=== PATIENT | male | born 1935 | race Caucasian/White ===

== ENCOUNTER 2019-10-29 19:01 | Observation (INO) | payer MEDICARE ==
[~2019-10-29] VITALS: Ht 185.4 cm; Wt 80.3 kg
[2019-10-29] MEDS ORDERED: BAYER CHEWABLE81 MG PO (19:04)
[2019-10-29 19:32] LABS: BASOPHILS 0.5 % (0-2); EOSINOPHILS 0.7 % (0-7); HEMATOCRIT 45.3 % (42.0-54.0); HEMOGLOBIN 15.6 g/dL (13.5-17.5); IMMATURE GRANULOCYTES 0.2 % (0-5); LYMPHOCYTES 28.3 % (15-50); MCH 32.9 pg (26.0-34.0); MCHC 34.4 g/dL (31.0-37.0); MCV 95.6 fL (80.0-100.0); MEAN PLATELET VOLUME 9.2 fL (7.4-10.4); MONOCYTES 7.7 % (2-11); NEUTROPHILS 62.6 % (40-80); PLATELET COUNT 153 10x3/uL (130-400); RBC 4.74 10x6/uL (4.20-6.10); RDW 12.8 % (11.5-14.5); WBC 4.4 10x3/uL (4.8-10.8)
[2019-10-29 19:42] LABS: APTT 25.4 SECONDS (22.8-39.4); INR 0.89 (0.85-1.17)
[2019-10-29 19:49] LABS: CALC OSMOLALITY 262 mosm/kg (275-300); CALCIUM 8.4 mg/dL (8.5-10.1); CARBON DIOXIDE 25.8 mmol/L (21.0-32.0); CHLORIDE - SERUM 95 mmol/L (98-107); CREATININE - SERUM 1.2 mg/dL (0.6-1.3); GLUCOSE 93 mg/dL (74-106); POTASSIUM - SERUM 4.1 mmol/L (3.5-5.1); SODIUM 131 mmol/L (136-145); UREA NITROGEN 12 mg/dL (7-18); eGFR NON AFRICAN AMERICAN 61 mL/min (90-120)
[2019-10-29 19:50] VITALS: BP 182/91
[2019-10-29 20:09] LABS: ALBUMIN 3.4 g/dL (3.4-5.0); ALKALINE PHOSPHATASE 47 U/L (30-120); ALT (SGPT) 17 U/L (10-68); BILIRUBIN - TOTAL 0.48 mg/dL (0.2-1.3); CKMB 3.8 U/L (0.0-3.6); CREATINE KINASE 85 UL (21-232); MAGNESIUM - SERUM 1.9 mg/dL (1.8-2.4); PROTEIN - SERUM 6.8 g/dL (6.4-8.2); THYROID STIMULATING HORMONE 4.51 uIU/mL (0.36-3.74)
[2019-10-29 20:10] LABS: TROPONIN-I < 0.017 ng/mL (0.000-0.060)
[2019-10-29 20:13] LABS: BILIRUBIN NEGATIVE (NEGATIVE); GLUCOSE NEGATIVE (NEGATIVE); KETONE NEGATIVE (NEGATIVE); NITRITE NEGATIVE (NEGATIVE); UROBILINOGEN NORMAL (NORMAL)
[2019-10-29 23:02] VITALS: BP 179/90; BMI 23.8
--- NOTE | 2019-10-30 00:09 | NUR ---
dR. MICHI DOHERTY AWATTING CALL BACK
--- NOTE | 2019-10-30 00:25 | NUR ---
DR BORDEN RETRUNED WITH NEW ORDERS MRI OF BRAIN WITH AND WITHOUT CONTRAST WITH OUT IF CREATININE LEVELS TO HIGH CAROTID DOPPLER STUDDY. ORDERS PLACED
[2019-10-30 04:35] VITALS: BP 178/89
[2019-10-30 06:03] LABS: BASOPHILS 0.2 % (0-2); EOSINOPHILS 0.9 % (0-7); HEMOGLOBIN 14.8 g/dL (13.5-17.5); IMMATURE GRANULOCYTES 0.2 % (0-5); LYMPHOCYTES 23.9 % (15-50); MCHC 33.6 g/dL (31.0-37.0); MEAN PLATELET VOLUME 9.2 fL (7.4-10.4); NEUTROPHILS 64.8 % (40-80); PLATELET COUNT 163 10x3/uL (130-400); RBC 4.63 10x6/uL (4.20-6.10); RDW 12.9 % (11.5-14.5); WBC 4.4 10x3/uL (4.8-10.8)
[2019-10-30 06:39] LABS: ALBUMIN 3.1 g/dL (3.4-5.0); ALKALINE PHOSPHATASE 50 U/L (30-120); ALT (SGPT) 15 U/L (10-68); BILIRUBIN - TOTAL 0.61 mg/dL (0.2-1.3); CALC OSMOLALITY 273 mosm/kg (275-300); CALCIUM 8.4 mg/dL (8.5-10.1); CARBON DIOXIDE 31.4 mmol/L (21.0-32.0); CHLORIDE - SERUM 103 mmol/L (98-107); CKMB 5.7 U/L (0.0-3.6); CREATINE KINASE 188 UL (21-232); CREATININE - SERUM 0.9 mg/dL (0.6-1.3); GLUCOSE 78 mg/dL (74-106); POTASSIUM - SERUM 4.3 mmol/L (3.5-5.1); PROTEIN - SERUM 6.3 g/dL (6.4-8.2); SODIUM 138 mmol/L (136-145); TROPONIN-I 0.024 ng/mL (0.000-0.060); UREA NITROGEN 10 mg/dL (7-18); eGFR NON AFRICAN AMERICAN 85 mL/min (90-120)
--- NOTE | 2019-10-30 07:15 | NUR ---
REC'D IN BED AWAKE AND ALERT. RESP EVEN AND UNLABORED WITH NO DISTRESS NOTED. CAN MAKE NEEDS AND WANTS KNOWN. DENIES ANY PAIN OR DISCOMFORT AT THIS TIME. ASSESSMENT COMPLETED. C/L IN REACH AT BEDSIDE.
[2019-10-30 08:30] VITALS: BP 175/60
--- NOTE | 2019-10-30 11:14 | EC ---
PATIENT:ROBERTA BEAN DATE OF SERVICE: 10/29/19 SEX: M MEDICAL RECORD: [id number] DATE OF : 33 LOCATION:[facility] AGE OF PATIENT: 83 ADMISSION DATE: 10/29/19 REFERRING PHYSICIAN: INTERPRETING PHYSICIAN: FAHAD DONAHUE MD ECHOCARDIOGRAM REPORT ECHO CHARGES 4 ECHO COMPLETE Date: 10/30/19 CLINICAL DIAGNOSIS: TIA ECHOCARDIOGRAPHIC MEASUREMENTS (adult normal given) AC root (d.<3.7cm) 4.0 cm LV Septum d (<1.2 cm> 1.6 cm Valve Excursion 1.7 cm LV Septum (systole) 2.0 cm Left Atria (s.<4.0cm> 4.0 cm LVPW d(<1.2cm) 1.4 cm RV (d.<2.3cm) 2.6 cm LVPW (sytole) 2.5 cm LV diastole(<5.6CM) 5.0 cm MV E-F(>70mm/sec) cm LV systole 2.9 cm LVOT Diameter 2.1 cm MV exc.(>10mm) cm Est.ejection fraction (50-75%) % DOPPLER: LVIT cm/sec A 121 cm/sec E 71.0 cm/sec LA cm/sec RVSP mmHg LVOT 120 cm/sec AOP1/2T m/s Asc. Ao 159 cm/sec RVOT 69.0 cm/sec RA cm/sec PA 75.0 cm/sec AV Gradient Peak 10.1 mmHg AV Mean 4.3 mmHg AV Area 2.7 cm MV Gradient Peak 6.1 mmHg MV Mean 2.0 mmHg MV Area cm COMMENTS: Costume Specialist: 1 BRITTANY PERALTADSOE Application Operations Engineer: 3 Dr. Harrison TAPE# PACS Pericardial Effusion N DATE OF SERVICE: Adequate 2D, color flow imaging, spectral Doppler, and M-Mode LVH is present. LV internal dimensions are normal. Wall motion is normal. EF is greater than or equal to 55%. Aortic valve is sclerotic. No evidence of stenosis by Doppler interrogation. Left atrium is normal at 4.0 cm. Mitral valve shows no prolapse. Trivial MR. Right-sided chambers are grossly normal. [id number] TR. ECHOCARDIOGRAM REPORT [id number] ROBERTA BEAN TRANSINT:[id number] Voice Confirmation ID: [id number] DOCUMENT ID: [id number] FAHAD DONAHUE MD at 1114 CC: [id number] DICTATION DATE: 10/30/19 1012 LAUNDRY PRESSER: 10/30/19 1058 ADM IN [facility] [address] [id number]
[2019-10-30 12:16] VITALS: BP 153/75
--- NOTE | 2019-10-30 12:45 | NUR ---
I have reviewed this patient and I concur with the Shift Assessment completed by the Licensed Practical Nurse today this shift.
[2019-10-30 14:01] VITALS: Ht 185.4 cm; Wt 80.3 kg
[2019-10-30 14:54] VITALS: BP 160/71
[2019-10-30] MEDS ORDERED: Sinemet 25/100 MG PO (15:25)
[2019-10-30] MEDS ORDERED: LISINOPRIL10 MG PO (15:25)
--- NOTE | 2019-10-30 17:53 | NUR ---
DC HOME AT THIS TIME WITH DAUGHTER AT BEDSIDE AND BOTH VOICE UNDERSTANDING OF DC ORDERS. PT TOOK ALL PERSONAL BELONGS WTIH HIM. STABLE CONDITION UPON DC.
== END 2019-10-30 18:01 | disposition home or self-care (01) ==
LOC: D.ER 19:01 → D.MS 21:33 → OBSVTIME 21:47 → D.MS 10-30 18:01
PROVIDERS: Family Medicine; ADMIT Family Medicine; ATTEND Family Medicine
DX: G31.2 Degeneration of nervous system due to alcohol (principal); R26.9 Unspecified abnormalities of gait and mobility; R53.1 Weakness; I10 Essential (primary) hypertension; F10.20 Alcohol dependence, uncomplicated; W19.XXXA Unspecified fall, initial encounter; R27.0 Ataxia, unspecified

== ENCOUNTER 2020-11-13 01:13 | Inpatient (IN) | payer MEDICARE ==
[~2020-11-13] VITALS: Ht 185.4 cm; Wt 88.5 kg
[~2020-11-13 01:13] MED LIST: BAYER CHEWABLE81 MG PO; LISINOPRIL10 MG PO; Sinemet 25/100 MG PO
[2020-11-13 01:52] LABS: BASOPHILS 0.6 % (0-2); EOSINOPHILS 0.1 % (0-7); HEMATOCRIT 42.9 % (42.0-54.0); HEMOGLOBIN 14.3 g/dL (13.5-17.5); LYMPHOCYTES 19.4 % (15-50); MCH 30.6 pg (26.0-34.0); MCHC 33.2 g/dL (31.0-37.0); MCV 92.2 fL (80.0-100.0); MEAN PLATELET VOLUME 7.5 fL (7.4-10.4); MONOCYTES 10.4 % (2-11); NEUTROPHILS 69.5 % (40-80); PLATELET COUNT 160 10x3/uL (130-400); RBC 4.66 10x6/uL (4.20-6.10); RDW 13.6 % (11.5-14.5); WBC 8.7 10x3/uL (4.8-10.8)
[2020-11-13 01:53] LABS: CALC OSMOLALITY 271 mosm/kg (275-300); CALCIUM 7.9 mg/dL (8.5-10.1); CARBON DIOXIDE 30.3 mmol/L (21.0-32.0); CHLORIDE - SERUM 100 mmol/L (98-107); POTASSIUM - SERUM 3.8 mmol/L (3.5-5.1); SODIUM 135 mmol/L (136-145); UREA NITROGEN 14 mg/dL (7-18); eGFR NON AFRICAN AMERICAN 75 mL/min (90-120)
[2020-11-13 01:58] LABS: GLUCOSE 118 mg/dL (74-106)
[2020-11-13 02:09] LABS: ALBUMIN 2.8 g/dL (3.4-5.0); ALKALINE PHOSPHATASE 74 U/L (30-120); ALT (SGPT) 13 U/L (10-68); BILIRUBIN - TOTAL 1.05 mg/dL (0.2-1.3); MAGNESIUM - SERUM 1.9 mg/dL (1.8-2.4); PROTEIN - SERUM 6.1 g/dL (6.4-8.2); THYROID STIMULATING HORMONE 4.46 uIU/mL (0.36-3.74); TROPONIN-I 0.016 ng/mL (0.000-0.060)
--- NOTE | 2020-11-13 03:21 | NUR ---
PT ATTEMPTING TO GET OUT OF BED, PT UNDID BED ALARM AND CORDS FROM MONITOR, PT SITTING ON THE END OF THE BED, PT REORIENTED AND MOVED UP IN BED. BED ALARM REATTATCHED AND PT EDUCATEED ON USE OF CALL LIGHT AGAIN.
[2020-11-13 04:00] LABS: UDS - AMPHET NEGATIVE QUAL (NEGATIVE); UDS - BARB NEGATIVE QUAL (NEGATIVE); UDS - BENZO NEGATIVE QUAL (NEGATIVE); UDS - COCAINE NEGATIVE QUAL (NEGATIVE); UDS - OPIATE NEGATIVE QUAL (NEGATIVE); UDS - PCP NEGATIVE QUAL (NEGATIVE); UDS - THC NEGATIVE QUAL (NEGATIVE)
[2020-11-13 04:07] LABS: AMORPHOUS SEDIMENT RARE LPF (<FEW); BACTERIA FEW HPF (<MOD); BILIRUBIN NEGATIVE (NEGATIVE); KETONE 1+ mg/dL (< 1+); NITRITE NEGATIVE (NEGATIVE); PH 5.5 (5.0-8.0); SQUAMOUS EPITHELIAL <1 HPF (0-4); UROBILINOGEN 4 mg/dL (< 2); WHITE CELLS - URINE 2 HPF (0-1)
--- NOTE | 2020-11-13 07:16 | NUR ---
PT CARE ASSUMED AT THIS TIME, PT IS AWAKE, CONFUSED, CLIMBING OFF THE END OF THE BED, ASSISTED BACK TO SAFE POSITION ON STRETCHER AND REDIRECTED, BED ALARM RE-ATTACHED AND VS MONITORING RE-ESTABLISHED, NAD NOTED, COOPERATIVE, CALL LIGHT IN REACH, INSTRUCTED ON USE.
[2020-11-13 07:17] VITALS: BP 113/64
--- NOTE | 2020-11-13 10:30 | NUR ---
PATIENT IS VERY CONFUSED. PICKING AND PULLING AT GOWN, COVERS, AND MONITOR LINES. DAUGHTER AT BEDSIDE, DISTRAUGHT OVER PATIENT'S MENTAL STATE. THIS NURSE DISCUSSED STAYING CALM, NOT BECOMING AGITATED OR ANGRY WITH THE PATIENT HE IS RESTLESS, CONFUSED TO CURRENT CIRCUMSTANCES AND WITHOUT SHORT TERM MEMORY RECALL.
--- NOTE | 2020-11-13 12:30 | NUR ---
ALL MONITOR LINES REMOVED TO DECREASE AGITATION OF PATIENT.
--- NOTE | 2020-11-13 14:20 | NUR ---
REPORT CALLED. DAUGHTER INFORMED OF MED/SURG BED AND TRANSFER.
--- NOTE | 2020-11-13 15:00 | NUR ---
REC'D TO ROOM 2222 AT THIS TIME WITH DAUGHTER AT SIDE. RESP EVEN AND UNLABORED WITH NO DISTRESS NOTED. UNABLE TO ANSWER QUESTION CORRECTLY. DENIES ANY PAIN OR DISCOMFORT AT THIS TIME. WILL CONTINUE TO OBSERVE FOR NEEDS. C/L IN RECH AT BEDSIDE.
[2020-11-13 21:05] VITALS: BP 139/73
[2020-11-13 22:31] VITALS: BP 139/39; BMI 25.7
[2020-11-14 04:15] VITALS: BP 109/64
[2020-11-14 06:35] LABS: CALC OSMOLALITY 268 mosm/kg (275-300); CARBON DIOXIDE 28.2 mmol/L (21.0-32.0); CHLORIDE - SERUM 101 mmol/L (98-107); CREATININE - SERUM 0.9 mg/dL (0.6-1.3); GLUCOSE 80 mg/dL (74-106); POTASSIUM - SERUM 3.7 mmol/L (3.5-5.1); SODIUM 134 mmol/L (136-145); eGFR NON AFRICAN AMERICAN 85 mL/min (90-120)
[2020-11-14 06:36] LABS: UREA NITROGEN 18 mg/dL (7-18)
[2020-11-14 06:46] LABS: BASOPHILS 0.5 % (0-2); EOSINOPHILS 0.1 % (0-7); HEMATOCRIT 38.4 % (42.0-54.0); HEMOGLOBIN 13.1 g/dL (13.5-17.5); LYMPHOCYTES 12.5 % (15-50); MCH 30.9 pg (26.0-34.0); MCV 90.7 fL (80.0-100.0); MEAN PLATELET VOLUME 7.7 fL (7.4-10.4); MONOCYTES 11.1 % (2-11); NEUTROPHILS 75.8 % (40-80); PLATELET COUNT 155 10x3/uL (130-400); RBC 4.23 10x6/uL (4.20-6.10); RDW 13.3 % (11.5-14.5)
[2020-11-14 06:47] LABS: WBC 6.3 10x3/uL (4.8-10.8)
[2020-11-14 07:33] VITALS: Ht 185.4 cm; Wt 88.5 kg
--- NOTE | 2020-11-14 07:53 | NUR ---
RECIEVED BEDSIDE REPORT. BED LOW POSITION, CALL LIGHT IN REACH. SLEEPING. FAMILY AT BEDSIDE. WILL CONTINUE TO MONITOR.
[2020-11-14 09:34] VITALS: BP 137/66
--- NOTE | 2020-11-14 14:08 | NUR ---
REHAB PRESCREEN ORDER RECEIVED. PATIENT IS A MANAGED MEDICARE. I WILL LOOK AT HIS CHART AND IF HE LOOKS TO MEET CRITERIA, I WILL HAVE IT READY TO SUBMIT ON MONDAY. THANK YOU FOR THIS REFERRAL. SHAVON RICO RN CLINICAL LIAISON, INPATIENT REHAB.
[2020-11-14 14:53] VITALS: BP 114/59
[2020-11-14 17:30] VITALS: BP 142/63
[2020-11-14 20:00] VITALS: BP 179/68
--- NOTE | 2020-11-14 23:30 | NUR ---
I have reviewed this patient and I concur with the Shift Assessment completed by the Licensed Practical Nurse today this shift.
[2020-11-15] VITALS: BP 155/67
[2020-11-15 04:00] VITALS: BP 161/39
[2020-11-15 06:11] LABS: BASOPHILS 0.3 % (0-2); EOSINOPHILS 0.1 % (0-7); HEMATOCRIT 39.3 % (42.0-54.0); HEMOGLOBIN 13.3 g/dL (13.5-17.5); LYMPHOCYTES 10.2 % (15-50); MCH 30.9 pg (26.0-34.0); MCHC 33.8 g/dL (31.0-37.0); MCV 91.3 fL (80.0-100.0); MEAN PLATELET VOLUME 7.5 fL (7.4-10.4); MONOCYTES 10.4 % (2-11); PLATELET COUNT 178 10x3/uL (130-400); RDW 13.2 % (11.5-14.5); WBC 7.5 10x3/uL (4.8-10.8)
[2020-11-15 06:48] LABS: CALC OSMOLALITY 270 mosm/kg (275-300); CALCIUM 7.9 mg/dL (8.5-10.1); CARBON DIOXIDE 29.3 mmol/L (21.0-32.0); CHLORIDE - SERUM 100 mmol/L (98-107); CREATININE - SERUM 0.9 mg/dL (0.6-1.3); GLUCOSE 94 mg/dL (74-106); POTASSIUM - SERUM 3.8 mmol/L (3.5-5.1); SODIUM 134 mmol/L (136-145); UREA NITROGEN 22 mg/dL (7-18); eGFR NON AFRICAN AMERICAN 85 mL/min (90-120)
--- NOTE | 2020-11-15 07:33 | NUR ---
IN BED SLEEPING. FRIEND AT BEDSIDE. BED LOW POSITION, CALL LIGHT IN REACH. WILL CONTINUE TO MONITOR.
[2020-11-15 08:27] VITALS: BP 160/92
[2020-11-15 13:02] VITALS: BP 142/90
--- NOTE | 2020-11-15 15:13 | NUR ---
FAMILY IN ROOM. SHAUN ALARM GOING OFF. STANDING AT BEDSIDE TO USE URINAL. SHAUN ALARM ON WHEN PATIENT SITUATED BACK IN TO BED. DENIES FURTHER NEEDS. CALL LIGHT IN REACH. WILL CONTINUE TO MONITOR.
[2020-11-15 17:27] VITALS: BP 125/67
[2020-11-15 20:00] VITALS: BP 130/71
--- NOTE | 2020-11-15 20:30 | NUR ---
WATCHING TV WITH NO COMPLAINTS VOICED. RESP UNLABORED. ORIENTED TO SELF. SL TO LAC INTACT WITHOUT REDNESS OR EDEMA NOTED. ASSIST UP TO BEDSIDE. VOICED 100 CC YELLOW URINE. BACK TO BED WITH MINIMAL ASSIST. BED ALARM ON.
[2020-11-16] VITALS: BP 148/70; BP 172/77
--- NOTE | 2020-11-16 02:08 | NUR ---
I have reviewed this patient and I concur with the Shift Assessment completed by the Licensed Practical Nurse today this shift.
[2020-11-16 04:00] VITALS: BP 172/77
[2020-11-16 05:57] LABS: BASOPHILS 0.3 % (0-2); EOSINOPHILS 0.3 % (0-7); HEMATOCRIT 38.9 % (42.0-54.0); HEMOGLOBIN 13.1 g/dL (13.5-17.5); MCH 30.8 pg (26.0-34.0); MCHC 33.6 g/dL (31.0-37.0); MCV 91.7 fL (80.0-100.0); MEAN PLATELET VOLUME 7.4 fL (7.4-10.4); NEUTROPHILS 79.4 % (40-80); PLATELET COUNT 188 10x3/uL (130-400); RBC 4.24 10x6/uL (4.20-6.10); RDW 13.5 % (11.5-14.5)
[2020-11-16 06:39] LABS: CALC OSMOLALITY 274 mosm/kg (275-300); CALCIUM 7.7 mg/dL (8.5-10.1); CARBON DIOXIDE 30.3 mmol/L (21.0-32.0); CHLORIDE - SERUM 101 mmol/L (98-107); CREATININE - SERUM 0.9 mg/dL (0.6-1.3); GLUCOSE 87 mg/dL (74-106); POTASSIUM - SERUM 3.6 mmol/L (3.5-5.1); SODIUM 136 mmol/L (136-145); UREA NITROGEN 23 mg/dL (7-18); eGFR NON AFRICAN AMERICAN 85 mL/min (90-120)
--- NOTE | 2020-11-16 07:37 | NUR ---
PATIENT ASLEEP IN BED ON RT SIDE, EASILY AWAKENED FOR ASSESSMENT, PATIENT IS ALERT TO SELF, REORIENTED TO HOSPITAL ROOM. NO NEEDS VOICED AT THIS TIME. CONTINUE WITH PLAN OF CARE
[2020-11-16 09:25] VITALS: BP 141/66
[2020-11-16 12:45] VITALS: BP 137/71
--- NOTE | 2020-11-16 12:49 | NUR ---
I have reviewed this patient and I concur with the Shift Assessment completed by the Licensed Practical Nurse today this shift.
[2020-11-16 15:46] VITALS: BP 129/76
--- NOTE | 2020-11-16 19:30 | NUR ---
RECIVED BEDSIDE REPORT. RESTING SUPINE IN BED. NO C/O PAIN OR DISCOMFORT. LEFT FOREARM PIV SALINE LOCKED. AWAKE AND ALERT TO SELF REORIENTED TO TIME/PLACE/SITUATION. EDUCATED TOWEL SEWER LIGHT AND NEEDS. CALL LIGHT IN REACH BED LOCKED IN LOW POSITION.
[2020-11-16 20:00] VITALS: BP 125/77
[2020-11-17] VITALS (7 sets, daily range): BP systolic 97–159; BP diastolic 63–86
[2020-11-17 05:53] LABS: BASOPHILS 0.3 % (0-2); EOSINOPHILS 0.7 % (0-7); HEMATOCRIT 38.2 % (42.0-54.0); HEMOGLOBIN 12.8 g/dL (13.5-17.5); LYMPHOCYTES 13.8 % (15-50); MCH 30.6 pg (26.0-34.0); MCHC 33.5 g/dL (31.0-37.0); MCV 91.4 fL (80.0-100.0); MEAN PLATELET VOLUME 7.5 fL (7.4-10.4); MONOCYTES 11.6 % (2-11); NEUTROPHILS 73.6 % (40-80); PLATELET COUNT 219 10x3/uL (130-400); RBC 4.18 10x6/uL (4.20-6.10); RDW 13.1 % (11.5-14.5); WBC 6.5 10x3/uL (4.8-10.8)
[2020-11-17 05:55] LABS: CALC OSMOLALITY 275 mosm/kg (275-300); CARBON DIOXIDE 30.4 mmol/L (21.0-32.0); CHLORIDE - SERUM 101 mmol/L (98-107); CREATININE - SERUM 0.9 mg/dL (0.6-1.3); GLUCOSE 87 mg/dL (74-106); POTASSIUM - SERUM 3.5 mmol/L (3.5-5.1); SODIUM 137 mmol/L (136-145); UREA NITROGEN 20 mg/dL (7-18); eGFR NON AFRICAN AMERICAN 85 mL/min (90-120)
--- NOTE | 2020-11-17 08:05 | NUR ---
PT. RECEIVED RESTING IN BED. YELLOW GOWN AND FALL ALARM INTACT. PT ALERT AND ORIENTED THIS MORNING. DENIES ANY PAIN OR NEEDS. SL INTACT TO LEFT ARM. NO DISTRESS. CL WITHIN REACH. [id number].
--- NOTE | 2020-11-17 12:12 | NUR ---
Nutrition follow-up: Diet order: Mechanical soft with thin liquids; extra gravy, condiments and add sauce to meats. Pt eating breakfast at time of RD visit. Pt with good appetite and is eating 100% of meal. RDN explained menu and took pts lunch, dinner selections. Labs reviewed WT: 194# Labs reviewed +BM Pt with good po intake at this time RDN will monitor pts progress toward nutrition goals in 3-5 days.
--- NOTE | 2020-11-17 13:06 | NUR ---
I have reviewed this patient and I concur with the Shift Assessment completed by the Licensed Practical Nurse today this shift.
--- NOTE | 2020-11-17 13:16 | NUR ---
RECEIVED CALL FROM CAR KNOCKER JUDY PATIENT WAS SR THIS MORNING AND NOW IS CONTROLLED AFIB 90, WENT TO CHECK ON PATIENT AND HE IS ASLEEP ON LEFT SIDE, NO NEEDS AT THIS TIME. CONTINUE WITH PLAN OF CARE
--- NOTE | 2020-11-17 15:08 | NUR ---
OT NOTE: PT COMPLETED SUPINE TO SIT WITH SBA. PT COMPLETED EOB SITTING WITH SBA. PT COMPLETED HAIR GROOMING WITH SETUP AT EOB. PT COMPLETED KAYLA/DOFF SOCKS WITH SBA AND EXTRA TIME. PT COMPLETED SIT TO STAND WITH SBA-CGA. [phone] THANK YOU,HUNG ZELAYA
[2020-11-17 15:11] LABS: CHOL - HDL RATIO 2.3 ratio (2.3-4.9); LDL-HDL RATIO 1.2 ratio (1.5-3.5)
[2020-11-18 03:53] VITALS: BP 121/61
--- NOTE | 2020-11-18 05:15 | NUR ---
PATIENT REMOVED PIV FROM LEFT AC TIP INTACT NO REDNESS NO SWELLING TOLERATED WELL. BED LOCKED IN LOW POSITION. CALL LIGHT IN REACH BED ALARM ON.
[2020-11-18 07:36] LABS: CALC OSMOLALITY 273 mosm/kg (275-300); CALCIUM 7.9 mg/dL (8.5-10.1); CARBON DIOXIDE 30.9 mmol/L (21.0-32.0); CHLORIDE - SERUM 102 mmol/L (98-107); CREATININE - SERUM 0.8 mg/dL (0.6-1.3); GLUCOSE 95 mg/dL (74-106); POTASSIUM - SERUM 3.5 mmol/L (3.5-5.1); SODIUM 136 mmol/L (136-145); UREA NITROGEN 17 mg/dL (7-18); eGFR NON AFRICAN AMERICAN > 90 mL/min (90-120)
[2020-11-18 07:38] LABS: BASOPHILS 0.6 % (0-2); EOSINOPHILS 0.7 % (0-7); HEMATOCRIT 40.3 % (42.0-54.0); HEMOGLOBIN 13.2 g/dL (13.5-17.5); LYMPHOCYTES 14.6 % (15-50); MCH 30.4 pg (26.0-34.0); MCHC 32.9 g/dL (31.0-37.0); MCV 92.4 fL (80.0-100.0); MONOCYTES 12.8 % (2-11); NEUTROPHILS 71.3 % (40-80); PLATELET COUNT 233 10x3/uL (130-400); RBC 4.36 10x6/uL (4.20-6.10); RDW 13.3 % (11.5-14.5)
[2020-11-18 07:41] VITALS: BP 139/82
--- NOTE | 2020-11-18 09:27 | NUR ---
CALLED [facility] TO CHECK ON AUTH STATUS. ASIA TOLD ME IT WAS STILL IN REVIEW. I WILL CALL BACK AGAIN AFTER I GET OUT OF IDT TODAY. SHAVON RICO RN, CLINICAL LIAISON, INPATIENT REHAB.
[2020-11-18 11:03] VITALS: BP 129/68
[2020-11-18] MEDS ORDERED: XARELTO20 MG PO (14:17)
--- NOTE | 2020-11-18 16:20 | NUR ---
I have reviewed this patient and I concur with the Shift Assessment completed by the Licensed Practical Nurse today this shift.
--- NOTE | 2020-11-18 16:36 | NUR ---
OT NOTE: PT LIEING IN BED COMPLETELY DRESSED. DTR REPORTS THAT PT GOT UP THIS AM, GOT DRESSED, SHAVED, AND WENT TO BATHROOM WITHOUT ASSIST. HOWEVER, PT SILL SLIGHTLY UNSTEADY WITH INITIAL SIT TO STAND AND REQUIRES CUES FOR WALKER MGMT FOR IN ROOM MOBILITY. PT DOING BETTER AND INITIATING ALL ADLS, HOWEVER, MAY BENEFIT FROM REHAB PRIOR TO DC HOME WITHOUT ASSIST. SHAKIRA BATISTA, OTR/L [phone]
[2020-11-18 20:00] VITALS: BP 151/72
[2020-11-19] VITALS: BP 163/83
[2020-11-19 04:00] VITALS: BP 156/82
--- NOTE | 2020-11-19 07:30 | NUR ---
PT IS RESTING IN BED WITH EYES CLOSED. RESPIRATIONS ARE EVEN AND UNLABORED. PT IS EASILY AROUSED WITH VERBAL STIMULATION AND IS AAO X 1. PT REORIENTED TO PLACE/TIME/SITUATION. ALL FALL PRECAUTIONS IN PLACE. PT WITHOUT PIV ACCESS. PT DENIES PRSENCE OF PAIN/N/V/DYSPNEA/SOB AT THIS TIME. NO APPARENT S/S OF DISTRESS NOTED. INCENTIVE SPIROMETER WITHIN REACH AND ENCOURAGED. PT DENIES FURTHER NEEDS. ROOM CLOSE TO NURSE STAITON. CALL LIGHT AND BEDSIDE TABLE ARE WITHIN REACH.SIDE RAILS X 2. WILL CONT TO MONITOR.
--- NOTE | 2020-11-19 08:09 | NUR ---
SPOKE WITH LIGIA AT [facility]. SHE STATED THE PATIENTS RECORDS HAVE BEEN SENT TO THE LINK ASSEMBLER FOR DETERMINATION, AND SHE SAID WE SHOULD HAVE DETERMINATION TODAY. I WILL CHECK BACK WITH THEM LATER TO SEE IF THEY HAVE REACHED A DETERMINATION. SHAVON RICO RN CLINICAL LIAISON, INPATIENT REHAB.
[2020-11-19 09:11] VITALS: BP 164/77
--- NOTE | 2020-11-19 10:03 | NUR ---
Notified Loreto Albert RN, Paper Sorter And Counter, that patient's insurance is offering a peer to peer review that expires toady at 2pm RELIGIOUS EDUCATION COORDINATOR. MANAGER CT, MD, or PA involved in the patient's care may call [phone] and select option five to participate in review per Sakina at [facility].- Kianna Hooks LPN Clinical Liaison
[2020-11-19 11:32] VITALS: BP 117/59
--- NOTE | 2020-11-19 12:49 | NUR ---
OT NOTE: PT SOMEWHAT CONFUSED THIS AM..PT REPORTING THAT HE HAD TO GET READY BECAUSE HE HAD A MEETING AT THE [facility]..PT WAS ORIENTED TO PERSON AND PLACE, HOWEVER, REQUIRED CUES FOR REORIENTATION TO PLACE AND TIME. PT PERFORMED TOILET TRANSFERS WITH MIN ASSIST ADN PERFORMED TOILET HYGIENE WITHOUT ASSIST; AMB TO SINK AND WAS ABLE TO PERFORM ALL SINK HYGIENE IN STANDING WITH SBA.. FATIGUED AFTER APPROX 4 MIN; REQUIRED REST BREAK AND WAS ABLE TO KAYLA SHIRT AND SHOES WITH SPV..AMB GREATER THAN 150 FT WITH RW.. MUCH MORE STEADY WITH WALKER.. SHAKIRA SY, OTR/L 488
--- NOTE | 2020-11-19 19:30 | NUR ---
RECEIVED BEDSIDE REPORT. PT LAYING IN BED ORIENTATED TO SELF ONLY. PT ABLE TO AMBULATE WITH ASSIST. EDUCATED PT ON CL AND NEEDS, NEEDS FURTHER INSTRUCTION. BED LOW, ALARM ON, CL IN REACH.
[2020-11-19 20:00] VITALS: BP 116/61
[2020-11-20 04:00] VITALS: BP 132/80
[2020-11-20 08:17] VITALS: BP 145/63
--- NOTE | 2020-11-20 09:00 | NUR ---
ALERT AND ORIENTED TO SELF. FALL PRECAUTIONS IN PLACE WITH BED ALARM ACTIVE WHENATTEMPTING TO GET OOB UNASSSITED. ENCOURAGED TO USE CALL LIGHT FOR ASSSIT.GENERALIZED WEAKNESS NOTED.
--- NOTE | 2020-11-20 11:01 | NUR ---
Nutrition reassessment: Diet order: Regular mechanical soft with thin liquids PO intake 75% average of meals Labs reviewed Ht: 6'1" Wt: 194# Estimated needs, nutrition diagnosis, goals and interventions remain the same as the initial assessment on 11/14/20 Will continue to provide food choices and honor food preferences within diet modification restrictions. RDN will follow-up in 3-5 days.
[2020-11-20 12:19] VITALS: BP 111/61
--- NOTE | 2020-11-20 14:20 | NUR ---
REPORT CALLED TO DRISS ROLAND AND PT AND DAUGHTER VERBALZIED UNDERSTANDING OF DISCHARG INSTRUCTIONS.
--- NOTE | 2020-11-22 18:18 | MORECARE ---
CASE MANAGEMENT DISCHARGE SUMMARY PATIENT: ROBERTA BEAN UNIT: [id number] ADM DATE: 11/15/20 AGE: 84 : 34 SEX: M ROOM/BED: D.2222 AUTHOR: STEVE,DOC PHYSICIAN: REFERRING PHYSICIAN: OLIVER OSBORN MD DATE OF SERVICE: 11/22/20 Case Management Discharge Planning Summary COMMENTS ENTERED DATE: 11/19/20 15:53 CT COMMENT TYPE: Discharge Planning REVIEWER: Loreto Albert PATIENT INSURANCE HAS DENIED INPATIENT REHAB. SPOKE WITH LORETO GARCIA AT DR. OLIVER OFFICE AND PLAN TO HOME WITH HOME HEALTH. THE PATIENTS DAUGHTER AND FRIEND CALLED AND SAID THEY CAN NOT TAKE CARE OF HIM AT HOME. HE WILL NEED REHAB FIRST. I AM FAXING A REFERRAL TO THE [facility] REQUESTED BY [facility]. CM TO FOLLOW AND ASSIST NEEDED. DCP REVIEW SUMMARY ANTICIPATED D/C DATE: EXPECTED LOS : CASE STATUS: DCP Initiated INITIAL REVIEW: 11/13/2020 INITIAL REVIEWER: Stehpanie Roberts FINAL DISCHARGE DISPOSITION: : FINAL REVIEWER: FINAL REVIEW DATE: DCP [employer] Questions [employer] Answers QUESTION: ANSWER : PROVIDER NETWORKING REVIEW DATE: 11/19/2020 SERVICE TYPE: [facility] REVIEWER: Loreto Albert PATIENT: ROBERTA BEAN ENCOUNTER: [id number] MEDICAL RECORD#: [id number] ADMISSION DATE: 11/15/2020 DISCHARGE DATE: 11/20/2020 ATTENDING MD: OLIVER CABRALES : AGE: 84 MARITAL STATUS: M DC PLAN ID: [id number] FACILITY: [facility] PRINTED ON: 11/22/20 18:18 CT All edits/amendments must be made on the electronic document DICTATION DATE: 11/22/201817 CARBONATING STONE CLEANER: VI 11/22/201817 RPT#: [id number] DC DATE:11/20/20 STATUS: DIS IN [facility] [address] [place] [address] END OF REPORT
== END 2020-11-20 14:22 | DRG 65 ==
LOC: D.ER 01:13 → D.EDHOLD 03:05 → OBSVTIME 03:05 → D.MS 03:05 → D.EDHOLD 03:05 → D.MS 12:37
PROVIDERS: Family Medicine; ADMIT Family Medicine; ATTEND Family Medicine
DX: I63.40 Cerebral infarction due to embolism of unspecified cerebral artery (principal); G11.9 Hereditary ataxia, unspecified; G25.0 Essential tremor; I10 Essential (primary) hypertension; G62.9 Polyneuropathy, unspecified; Z87.891 Personal history of nicotine dependence; I44.1 Atrioventricular block, second degree; R26.89 Other abnormalities of gait and mobility